=== PATIENT | female | born 2000 | race Caucasian/White ===

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

== ENCOUNTER 2022-05-06 17:37 | Emergency (ER) | payer MEDICAID ==
[~2022-05-06] VITALS: Ht 157.5 cm; Wt 54.4 kg
[~2022-05-06 17:37] MED LIST changes: +NITR100C6 PO; -PHEN-716 PO; -PROM25TA14 PO
[2022-05-06 18:09] VITALS: BP 104/84
[2022-05-06] MEDS ORDERED: proCHLORperazine 10 MG/2 ml inj IV ONE (18:20)
[2022-05-06] MEDS ORDERED: normal saline 1000ML IV soln IV ONE (18:20)
[2022-05-06] MEDS ORDERED: ketamine 10mg/ml 20ml inj 100 MG in normal saline 100ml IV soln 90 ML IV SCH (18:20)
--- NOTE | 2022-05-06 20:02 | NUR ---
DR BERG MADE AWARE PATIENT STILL IN SEVERE PAIN WITH KETAMIN DRIP (SEE EMAR).
== END 2022-05-06 20:26 | disposition left against medical advice (07) ==
LOC: ER 17:37
DX: R11.2 Nausea with vomiting, unspecified (principal); G89.29 Other chronic pain; R10.9 Unspecified abdominal pain; J45.909 Unspecified asthma, uncomplicated; Z87.448 Personal history of other diseases of urinary system; Z88.8 Allergy status to other drugs, medicaments and biological substances
CPT/HCPCS: 96365; 96375; 99284; J0780; J3490; J7030